=== PATIENT | female | born 1980 | race Caucasian/White ===

== ENCOUNTER 2020-07-15 19:13 | Emergency (ER) | payer OTHER ==
[~2020-07-15] VITALS: Ht 167.6 cm; Wt 63.2 kg
[2020-07-15] MEDS ORDERED: LORazepam 2 MG/ML VIAL IVP ONE (20:15)
[2020-07-15] MEDS ORDERED: MAGNESIUM SULFATE 2 GM, MVI, ADULT NO.1 WITH VIT K 10 ML, THIAMINE 100 MG, FOLIC ACID 1... IV ONE ×5 (20:15)
[2020-07-15 20:21] LABS: BASOPHILS % (AUTO) 1.5 % (0.0-2.0); EOSINOPHILS % (AUTO) 0.9 % (1.0-6.0); HEMATOCRIT 37.8 % (36-46); HEMOGLOBIN 13.1 g/dL (12.0-16.0); LYMPHOCYTES # (AUTO) 1.8 K/uL (1.0-4.8); LYMPHOCYTES % (AUTO) 35.9 % (22.0-44.0); MEAN CORPUSCULAR HEMOGLOBIN 32.3 pg (26.0-34.0); MEAN CORPUSCULAR HGB CONC 34.7 G/dL (31.0-37.0); MEAN CORPUSCULAR VOLUME 93 fL (80-100); MONOCYTES # (AUTO) 0.5 K/uL (0.1-1.0); MONOCYTES % (AUTO) 9.9 % (2.0-9.0); NEUTROPHILS # (AUTO) 2.6 K/uL (1.8-7.7); NEUTROPHILS % (AUTO) 51.8 % (40.0-70.0); PLATELET COUNT (AUTO) 254 K/uL (150-450); RED BLOOD CELL COUNT(AUTO) 4.06 MIL/uL (4.00-5.20); RED CELL DISTRIBUTION WIDTH 12.9 % (11.5-14.5)
[2020-07-15 20:31] LABS: ANION GAP 19 mmol/L (8-16); CARBON DIOXIDE 21 mmol/L (22-29); CHLORIDE 90 mmol/L (98-107); GLOMERULAR FILTR. RATE CALC > 60 mL/min (>60); GLUCOSE,RANDOM 94 mg/dL (70-110); POTASSIUM 4.7 mmol/L (3.5-5.1); SODIUM SERUM 130 mmol/L (136-145); UREA NITROGEN, BLOOD 5 mg/dL (7-18)
[2020-07-15 20:32] LABS: APPEARANCE,URINE CLOUDY (CLEAR); BILIRUBIN,URINE NEGATIVE (NEGATIVE); GLUCOSE, URINE (UA) NEGATIVE (NEGATIVE); KETONES,URINE TRACE mg/dL (NEGATIVE); LEUKOCYTE ESTERASE ,URINE MODERATE (NEGATIVE); NITRATE,URINE NEGATIVE (NEGATIVE); OCCULT BLOOD,URINE NEGATIVE (NEGATIVE); PH,URINE 5.5 (5.0-8.0); PROTEIN,URINE POS 1+ (NEGATIVE)
[2020-07-15 20:38] LABS: AMPHET/METH SCREEN,URINE NEGATIVE (NEGATIVE); BARBITURATE SCREEN, URINE NEGATIVE (NEGATIVE); BENZODIAZEPINES SCREEN,URINE NEGATIVE (NEGATIVE); CANNABINOID SCREEN,URINE POSITIVE (NEGATIVE); COCAINE SCREEN,URINE NEGATIVE (NEGATIVE); METHADONE SCREEN, URINE NEGATIVE (NEGATIVE); OPIATE SCREEN,URINE NEGATIVE (NEGATIVE)
[2020-07-15 20:40] LABS: PHENCYCLIDINE SCREEN,URINE NEGATIVE (NEGATIVE)
[2020-07-15 20:44] LABS: PROTHROMBIN TIME 10.4 SEC (9.4-11.6)
[2020-07-15 20:50] LABS: B-TYPE NATRIURETIC PEPTIDE 19 pg/mL (0-100)
[2020-07-15 20:56] LABS: ALANINE AMINOTRANSFERASE 88 U/L (12-78); ALBUMIN 4.9 g/dL (3.4-5.0); ALKALINE PHOSPHATASE 61 U/L (46-116); ASPARTATE AMINOTRANSFERASE 174 U/L (15-37); BILIRUBIN,TOTAL 0.9 mg/dL (0.1-1.0); CREATINE KINASE, TOTAL ONLY 213 U/L (26-192); HCG,QUANTITATIVE 2 mIU/mL (0-6); TOTAL PROTEIN, SERUM 8.8 g/dL (6.4-8.2)
[2020-07-15 21:00] LABS: BACTERIA,URINE Few /HPF (None Seen); RBC,URINE 0-2 /HPF (0-2); SQUAMOUS EPITHELIAL CELL,UR Moderate /LPF (None Seen)
[2020-07-16 00:17] VITALS: BP 122/75
== END 2020-07-16 01:38 | disposition home or self-care (01) ==
LOC: EMS 19:14
DX: F41.9 Anxiety disorder, unspecified (principal); I10 Essential (primary) hypertension; F17.210 Nicotine dependence, cigarettes, uncomplicated; F12.90 Cannabis use, unspecified, uncomplicated; F10.129 Alcohol abuse with intoxication, unspecified; Y90.6 Blood alcohol level of 120-199 mg/100 ml
CPT/HCPCS: 36415; 71045; 80053; 80307; 81001; 82550; 83880; 84484; 84702; 85025; 85610; 85730; 87086; 93005; 96365; 96366; 96375; 99285; G0480; J2060; J3411; J3475; J3490 ×2; J7030

== ENCOUNTER 2021-08-13 19:41 | Inpatient (IN) | payer MEDICAID, OTHER ==
[~2021-08-13] VITALS: Ht 167.6 cm; Wt 64.8 kg
[2021-08-13] MEDS ORDERED: SODIUM CHLORIDE 0.9% 1,000 ML IV ONE (20:15)
[2021-08-13] MEDS ORDERED: ONDANSETRON HCL 4 MG/2 ML VIAL IVP ONE (20:15)
[2021-08-13] MEDS ORDERED: LORazepam 2 MG/ML VIAL IVP ONE ×2 (20:15→21:15)
[2021-08-13 20:50] LABS: BASOPHILS % (AUTO) 0.3 % (0.0-2.0); COVID AG,FIA SOURCE NASOPHARYNGEAL; EOSINOPHILS % (AUTO) 2.7 % (1.0-6.0); HEMATOCRIT 36.4 % (36-46); HEMOGLOBIN 12.3 g/dL (12.0-16.0); LYMPHOCYTES # (AUTO) 2.4 K/uL (1.0-4.8); LYMPHOCYTES % (AUTO) 37.7 % (22.0-44.0); MEAN CORPUSCULAR HEMOGLOBIN 31.5 pg (26.0-34.0); MEAN CORPUSCULAR HGB CONC 33.8 G/dL (31.0-37.0); MEAN CORPUSCULAR VOLUME 93 fL (80-100); MONOCYTES # (AUTO) 0.5 K/uL (0.1-1.0); MONOCYTES % (AUTO) 7.7 % (2.0-9.0); NEUTROPHILS # (AUTO) 3.3 K/uL (1.8-7.7); NEUTROPHILS % (AUTO) 51.6 % (40.0-70.0); PLATELET COUNT (AUTO) 221 K/uL (150-450); RED BLOOD CELL COUNT(AUTO) 3.91 MIL/uL (4.00-5.20); RED CELL DISTRIBUTION WIDTH 12.8 % (11.5-14.5)
[2021-08-13 21:25] LABS: ANION GAP 18 mmol/L (8-16); CARBON DIOXIDE 22 mmol/L (22-29); CHLORIDE 91 mmol/L (98-107); POTASSIUM 3.9 mmol/L (3.5-5.1); SODIUM SERUM 131 mmol/L (136-145)
[2021-08-13 21:26] LABS: CREATININE < 0.15 mg/dL (0.60-1.30); GLOMERULAR FILTR. RATE CALC 9 mL/min (>60); GLUCOSE,RANDOM 96 mg/dL (70-110); UREA NITROGEN, BLOOD 4 mg/dL (7-18)
[2021-08-13 21:39] LABS: PROTHROMBIN TIME 10.7 SEC (9.4-11.6)
[2021-08-13 21:40] LABS: ALANINE AMINOTRANSFERASE 60 U/L (12-78); ALBUMIN 4.6 g/dL (3.4-5.0); ALKALINE PHOSPHATASE 84 U/L (46-116); ASPARTATE AMINOTRANSFERASE 108 U/L (15-37); BILIRUBIN,TOTAL 0.9 mg/dL (0.1-1.0); CALCIUM, TOTAL 9.2 mg/dL (8.8-10.5); CREATINE KINASE, TOTAL ONLY 195 U/L (26-192); PHOSPHORUS 1.9 mg/dL (2.5-4.9); TOTAL PROTEIN, SERUM 8.6 g/dL (6.4-8.2)
[2021-08-13 21:41] LABS: HCG,QUANTITATIVE 1 mIU/mL (0-6)
[2021-08-13 21:44] LABS: APPEARANCE,URINE CLEAR (CLEAR); BILIRUBIN,URINE NEGATIVE (NEGATIVE); GLUCOSE, URINE (UA) NEGATIVE (NEGATIVE); KETONES,URINE NEGATIVE (NEGATIVE); LEUKOCYTE ESTERASE ,URINE NEGATIVE (NEGATIVE); NITRATE,URINE NEGATIVE (NEGATIVE); OCCULT BLOOD,URINE NEGATIVE (NEGATIVE); PROTEIN,URINE NEGATIVE (NEGATIVE)
[2021-08-13] MEDS ORDERED: 0.9% SODIUM CHLORIDE 10 ML SYRINGE IVP PRN (21:45)
[2021-08-13] MEDS ORDERED: ACETAMINOPHEN 325 MG TABLET PO PRN (21:45)
[2021-08-13] MEDS ORDERED: POTASSIUM PHOS,M-BASIC-D-BASIC 20 MMOL in DEXTROSE 5%-WATER 150 ML IV ONE (21:45)
[2021-08-13] MEDS ORDERED: MAGNESIUM SULFATE 2 GM/WATER 50 ML IV ONE (21:45)
[2021-08-13] MEDS ORDERED: ONDANSETRON HCL 4 MG/2 ML VIAL IVP PRN ×2 (21:45→22:15)
[2021-08-13 22:07] LABS: AMPHET/METH SCREEN,URINE NEGATIVE (NEGATIVE); BARBITURATE SCREEN, URINE NEGATIVE (NEGATIVE); BENZODIAZEPINES SCREEN,URINE NEGATIVE (NEGATIVE); CANNABINOID SCREEN,URINE NEGATIVE (NEGATIVE); COCAINE SCREEN,URINE NEGATIVE (NEGATIVE); METHADONE SCREEN, URINE NEGATIVE (NEGATIVE); OPIATE SCREEN,URINE NEGATIVE (NEGATIVE)
[2021-08-13 22:08] LABS: B-TYPE NATRIURETIC PEPTIDE 39 pg/mL (0-100)
[2021-08-13 22:13] LABS: PHENCYCLIDINE SCREEN,URINE NEGATIVE (NEGATIVE)
[2021-08-13] MEDS ORDERED: LORazepam 2 MG TABLET PO PRN (22:15)
[2021-08-13] MEDS: MAGNESIUM SULFATE 2 GM, MVI, ADULT NO.1 WITH VIT K 10 ML, THIAMINE 100 MG, FOLIC ACID 1... IV SCH ×5 (23:03)
[2021-08-14] VITALS (9 sets, daily range): BP systolic 133–163; BP diastolic 83–109
[2021-08-14] MEDS: HEPARIN SODIUM,PORCINE 5,000 UNITS/ML VIAL SQ SCH ×4 (00:26→23:35)
[2021-08-14] MEDS: ACETAMINOPHEN 325 MG TABLET PO PRN ×3 (00:46→16:24)
[2021-08-14] MEDS ORDERED: KETOROLAC TROMETHAMINE 15 MG/ML VIAL IVP ONE (06:00)
[2021-08-14] MEDS ORDERED: LORazepam 2 MG TABLET PO PRN (07:00)
[2021-08-14 07:23] LABS: BASOPHILS % (AUTO) 1.5 % (0.0-2.0); EOSINOPHILS % (AUTO) 5.8 % (1.0-6.0); HEMATOCRIT 34.4 % (36-46); HEMOGLOBIN 11.6 g/dL (12.0-16.0); LYMPHOCYTES # (AUTO) 1.4 K/uL (1.0-4.8); LYMPHOCYTES % (AUTO) 33.3 % (22.0-44.0); MEAN CORPUSCULAR HEMOGLOBIN 31.8 pg (26.0-34.0); MEAN CORPUSCULAR HGB CONC 33.7 G/dL (31.0-37.0); MEAN CORPUSCULAR VOLUME 94 fL (80-100); MONOCYTES # (AUTO) 0.4 K/uL (0.1-1.0); MONOCYTES % (AUTO) 9.9 % (2.0-9.0); NEUTROPHILS # (AUTO) 2.1 K/uL (1.8-7.7); NEUTROPHILS % (AUTO) 49.5 % (40.0-70.0); PLATELET COUNT (AUTO) 187 K/uL (150-450); RED BLOOD CELL COUNT(AUTO) 3.64 MIL/uL (4.00-5.20); RED CELL DISTRIBUTION WIDTH 12.9 % (11.5-14.5)
[2021-08-14 07:40] LABS: ALANINE AMINOTRANSFERASE 50 U/L (12-78); ALKALINE PHOSPHATASE 72 U/L (46-116); ANION GAP 9 mmol/L (8-16); ASPARTATE AMINOTRANSFERASE 86 U/L (15-37); BILIRUBIN,TOTAL 1.3 mg/dL (0.1-1.0); CALCIUM, TOTAL 8.6 mg/dL (8.8-10.5); CARBON DIOXIDE 27 mmol/L (22-29); CHLORIDE 100 mmol/L (98-107); CREATININE 0.53 mg/dL (0.60-1.30); GLOMERULAR FILTR. RATE CALC > 60 mL/min (>60); GLUCOSE,RANDOM 78 mg/dL (70-110); POTASSIUM 3.9 mmol/L (3.5-5.1); SODIUM SERUM 136 mmol/L (136-145); TOTAL PROTEIN, SERUM 7.5 g/dL (6.4-8.2); UREA NITROGEN, BLOOD 3 mg/dL (7-18)
[2021-08-14] MEDS: LORazepam 2 MG TABLET PO SCH ×4 (09:36→20:22)
[2021-08-14] MEDS: AmLODIPine BESYLATE 10 MG TABLET PO SCH (11:42)
[2021-08-14] MEDS ORDERED: CloNIDine HCL 0.1 MG TABLET PO PRN (19:00)
[2021-08-14] MEDS: MAGNESIUM SULFATE 2 GM, MVI, ADULT NO.1 WITH VIT K 10 ML, THIAMINE 100 MG, FOLIC ACID 1... IV SCH ×5 (19:01)
[2021-08-15 00:39] VITALS: BP 138/89
[2021-08-15 05:41] VITALS: BP 148/92
[2021-08-15 06:32] LABS: BASOPHILS % (AUTO) 0.7 % (0.0-2.0); EOSINOPHILS % (AUTO) 7.2 % (1.0-6.0); HEMATOCRIT 35.3 % (36-46); HEMOGLOBIN 11.8 g/dL (12.0-16.0); LYMPHOCYTES # (AUTO) 1.4 K/uL (1.0-4.8); LYMPHOCYTES % (AUTO) 30.3 % (22.0-44.0); MEAN CORPUSCULAR HEMOGLOBIN 31.5 pg (26.0-34.0); MEAN CORPUSCULAR HGB CONC 33.3 G/dL (31.0-37.0); MEAN CORPUSCULAR VOLUME 95 fL (80-100); MONOCYTES # (AUTO) 0.5 K/uL (0.1-1.0); MONOCYTES % (AUTO) 11.7 % (2.0-9.0); NEUTROPHILS # (AUTO) 2.3 K/uL (1.8-7.7); NEUTROPHILS % (AUTO) 50.1 % (40.0-70.0); PLATELET COUNT (AUTO) 189 K/uL (150-450); RED BLOOD CELL COUNT(AUTO) 3.72 MIL/uL (4.00-5.20); RED CELL DISTRIBUTION WIDTH 12.8 % (11.5-14.5)
[2021-08-15 07:05] LABS: ALANINE AMINOTRANSFERASE 47 U/L (12-78); ALKALINE PHOSPHATASE 74 U/L (46-116); ANION GAP 10 mmol/L (8-16); ASPARTATE AMINOTRANSFERASE 54 U/L (15-37); BILIRUBIN,TOTAL 1.1 mg/dL (0.1-1.0); CALCIUM, TOTAL 8.9 mg/dL (8.8-10.5); CARBON DIOXIDE 27 mmol/L (22-29); CHLORIDE 100 mmol/L (98-107); CREATININE 0.54 mg/dL (0.60-1.30); GLOMERULAR FILTR. RATE CALC > 60 mL/min (>60); GLUCOSE,RANDOM 90 mg/dL (70-110); POTASSIUM 3.6 mmol/L (3.5-5.1); SODIUM SERUM 137 mmol/L (136-145); TOTAL PROTEIN, SERUM 7.6 g/dL (6.4-8.2); UREA NITROGEN, BLOOD 4 mg/dL (7-18)
[2021-08-15 08:32] VITALS: BP 143/86
[2021-08-15] MEDS: AmLODIPine BESYLATE 10 MG TABLET PO SCH (09:11)
[2021-08-15] MEDS: LORazepam 2 MG TABLET PO SCH ×2 (09:11→13:16)
[2021-08-15] MEDS: HEPARIN SODIUM,PORCINE 5,000 UNITS/ML VIAL SQ SCH (09:12)
[2021-08-15 12:36] VITALS: BP 138/78
[2021-08-15] MEDS ORDERED: LIB25 PO ×4 (16:05→16:13)
[2021-08-15] MEDS ORDERED: MULT-1203 PO (16:16)
[2021-08-15] MEDS ORDERED: FOLI-130 PO (16:17)
[2021-08-15] MEDS ORDERED: THIA100T80 PO (16:17)
[2021-08-15] MEDS ORDERED: AMLO-258 PO (16:18)
[2021-08-16] MEDS ORDERED: LORazepam 1 MG TABLET PO PRN (07:00)
[2021-08-16] MEDS ORDERED: LORazepam 1 MG TABLET PO SCH (09:00)
[2021-08-17] MEDS ORDERED: LORazepam 1 MG TABLET PO PRN (07:00)
== END 2021-08-15 16:25 | disposition home or self-care (01) | DRG 426 ==
LOC: EMS 19:43 → 6S 22:00
PROVIDERS: ADMIT Internal Medicine; ATTEND Internal Medicine
DX: E87.1 Hypo-osmolality and hyponatremia (principal); K70.10 Alcoholic hepatitis without ascites; E83.42 Hypomagnesemia; F10.239 Alcohol dependence with withdrawal, unspecified; I10 Essential (primary) hypertension; F41.9 Anxiety disorder, unspecified; Z87.891 Personal history of nicotine dependence; G43.909 Migraine, unspecified, not intractable, without status migrainosus; Z20.822 Contact with and (suspected) exposure to COVID-19
CPT/HCPCS: 80053; 81003; 82550; 83605; 83735; 83880; 84100; 84484; 84702; 85025; 85610; 85730; 93005; 99291; G0480; J1644; J1885; J2060; J2405; J3411; J3475; J3490; J7030; J7060

== ENCOUNTER 2024-04-17 23:03 | Emergency (ER) | payer MEDICAID ==
[~2024-04-17] VITALS: Ht 167.6 cm; Wt 65.0 kg
[~2024-04-17 23:03] MED LIST: AMLO-258 PO; CHLO25CA6 PO; FOLI-130 PO; MULT-1203 PO; THIA100T80 PO
[2024-04-17 23:08] VITALS: TEMP 97.5
[2024-04-17] MEDS ORDERED: PERCT PO (23:44)
[2024-04-17 23:45] VITALS: BP 152/79; PULSE 89; RESP 18
[2024-04-17] MEDS: HYDROCODONE/ACETAMINOPHEN 5-325 MG TABLET PO ONE (23:47)
== END 2024-04-18 00:11 | disposition home or self-care (01) ==
LOC: EMS 23:06
DX: S82.831A Other fracture of upper and lower end of right fibula, initial encounter for closed fracture (principal); I10 Essential (primary) hypertension; F12.90 Cannabis use, unspecified, uncomplicated; F17.210 Nicotine dependence, cigarettes, uncomplicated; W10.1XXA Fall (on)(from) sidewalk curb, initial encounter; Y93.89 Activity, other specified; Y92.89 Other specified places as the place of occurrence of the external cause; Y99.8 Other external cause status
CPT/HCPCS: 99283